=== PATIENT | female | born 1970 | race Native Hawaiian/Other Pacific Islander ===

== ENCOUNTER 2022-10-31 15:32 | Emergency (ER) | payer BC ==
[~2022-10-31] VITALS: Ht 157.5 cm; Wt 52.2 kg
[2022-10-31 18:20] VITALS: BP 124/70; TEMP 98.1
== END 2022-10-31 18:20 | disposition home or self-care (01) ==
LOC: ED 15:32
DX: S60.511A Abrasion of right hand, initial encounter (principal); X58.XXXA Exposure to other specified factors, initial encounter
CPT/HCPCS: 99282